=== PATIENT | female | born 1975 | race Caucasian/White ===

== ENCOUNTER 2019-08-24 14:27 | Inpatient (IN) | payer OTHER ==
[~2019-08-24] VITALS: Ht 160 cm; Wt 49.7 kg
[~2019-08-24 14:27] MED LIST: CARAL PO; CEFD300C3 PO; LEVO125T95 PO; LEVOTHYROXINE PO; LIB25 PO; MVIT PO; PANT40TA PO
[2019-08-24 15:04] LABS: BASOPHILS % (AUTO) 0.8 % (0.0-5.0); EOSINOPHILS % (AUTO) 0.8 % (0.0-8.0); HEMATOCRIT 41.3 % (36-48); LYMPHOCYTES % (AUTO) 11.7 % (21.0-51.0); MEAN CORPUSCULAR HEMOGLOBIN 35.4 pg (27.0-33.0); MEAN CORPUSCULAR HGB CONC 33.7 g/dL (32.0-36.0); MEAN CORPUSCULAR VOLUME 105.1 fL (79-99); MONOCYTES % (AUTO) 6.1 % (3.0-13.0); NEUTROPHILS % (AUTO) 80.6 % (40.0-77.0); NUCLEATED RED BLOOD CELLS 0.1 % (0.0-0.19); PLATELET COUNT (AUTO) 386 K/uL (130-400); RED BLOOD CELL COUNT(AUTO) 3.93 MIL/uL (4.00-5.50); RED CELL DISTRIBUTION WIDTH 16.7 % (11.0-15.5); WHITE BLOOD COUNT (AUTO) 16.2 K/uL (4.8-10.8)
[2019-08-24 15:17] LABS: INR 1.02 (0.85-1.15); PARTIAL THROMBOPLASTIN TIME 31.6 SEC (26.3-35.5); PROTHROMBIN TIME 10.7 SEC (9.6-11.6)
[2019-08-24 15:19] LABS: ALBUMIN 1.6 g/dL (3.5-5.0); BILIRUBIN,TOTAL 1.1 mg/dL (0.2-1.0); CREATININE 2.7 mg/dL (0.5-1.5); TOTAL PROTEIN, SERUM 6.2 g/dL (6.0-8.3)
[2019-08-24] MEDS ORDERED: ONDANSETRON HCL 4 MG/2 ML VIAL ONE (15:19)
[2019-08-24] MEDS ORDERED: MORPHINE SULFATE 2 MG/ML 1ML SYG ONE (15:20)
[2019-08-24] MEDS ORDERED: ZOSYN 3.375GM+NS 50ML 50 ML IV ONE (15:40)
[2019-08-24] MEDS ORDERED: DEXTROSE 5 % AND 0.9 % NACL 1,000 ML IV SCH (16:30)
[2019-08-24] MEDS ORDERED: ONDANSETRON HCL 4 MG/2 ML VIAL IV PRN (16:30)
[2019-08-24 18:40] VITALS: BP 93/57
[2019-08-24 19:15] VITALS: BP 97/61
[2019-08-24] MEDS ORDERED: PHARMACY COMMUNICATION MISC SCH ×2 (19:30→21:30)
[2019-08-24] MEDS ORDERED: ACET1TAB12 PO (20:12)
[2019-08-24] MEDS: ZOSYN 3.375GM+NS 50ML 50 ML IV SCH (20:56)
[2019-08-24] MEDS ORDERED: KETOROLAC TROMETHAMINE 15MG/ML IM PRN (21:00)
[2019-08-24] MEDS: ACETAMINOPHEN-CODEINE 300/30MG TAB PO PRN (21:27)
[2019-08-24] MEDS: SODIUM CHLORIDE 0.9% 1000ML 1,000 ML IV SCH (23:04)
[2019-08-25] VITALS (8 sets, daily range): BP systolic 80–89; BP diastolic 43–55
[2019-08-25] MEDS: KETOROLAC TROMETHAMINE 15MG/ML IV PRN ×3 (02:18→15:18)
--- NOTE | 2019-08-25 04:21 | NUR ---
Notified Cami Muhammad BENCH INSPECTOR regarding patient been having low blood pressure of 88/49 also informed her that patient stated that she has been running low BP ever since post cholecystectomy 08/05. She ordered NS bolus of 500cc, which then i informed her that her creatine is elevated which is 2.7 and she said to give it still.
[2019-08-25] MEDS ORDERED: SODIUM CHLORIDE 0.9% 1000ML 500 ML IV ONE (04:30)
--- NOTE | 2019-08-25 04:30 | NUR ---
Bolus IV NS 500 cc was given. Patient tolerated well. No signs of discomfort
[2019-08-25] MEDS: SODIUM CHLORIDE 0.9% 1000ML 1,000 ML IV SCH ×2 (04:32→10:20)
[2019-08-25 05:22] LABS: BASOPHILS % (AUTO) 1.2 % (0.0-5.0); EOSINOPHILS % (AUTO) 1.8 % (0.0-8.0); HEMATOCRIT 33.5 % (36-48); LYMPHOCYTES % (AUTO) 14.8 % (21.0-51.0); MEAN CORPUSCULAR HEMOGLOBIN 35.7 pg (27.0-33.0); MEAN CORPUSCULAR HGB CONC 34.3 g/dL (32.0-36.0); MEAN CORPUSCULAR VOLUME 104.2 fL (79-99); MONOCYTES % (AUTO) 8.7 % (3.0-13.0); NEUTROPHILS % (AUTO) 73.5 % (40.0-77.0); PLATELET COUNT (AUTO) 246 K/uL (130-400); RED BLOOD CELL COUNT(AUTO) 3.22 MIL/uL (4.00-5.50); RED CELL DISTRIBUTION WIDTH 16.8 % (11.0-15.5); WHITE BLOOD COUNT (AUTO) 11.4 K/uL (4.8-10.8)
[2019-08-25 05:40] LABS: ALBUMIN 1.4 g/dL (3.5-5.0); BILIRUBIN,TOTAL 1.1 mg/dL (0.2-1.0); CREATININE 2.8 mg/dL (0.5-1.5); POTASSIUM 4.9 mmol/L (3.5-5.1); TOTAL PROTEIN, SERUM 4.7 g/dL (6.0-8.3)
[2019-08-25] MEDS ORDERED: ALBUMIN (HUMAN) 25% 100 ML IV SCH (08:45)
[2019-08-25] MEDS: FAMOTIDINE/PF 20 MG/2 ML VIAL IV SCH ×2 (09:33→21:24)
[2019-08-25] MEDS: ZOSYN 3.375GM+NS 50ML 50 ML IV SCH ×2 (09:33→21:25)
[2019-08-25] MEDS: ENOXAPARIN SODIUM 30 MG/0.3 ML SQ SCH (09:34)
--- NOTE | 2019-08-25 14:37 | NUR ---
DCP CM met with pt discussed dc plans. Pt is independent prior to admission, lives at home w/boyfriend Denies any equipments/services. Feels safe to go back home, still drives, boyfriend able to assist with transportation and needs as necessary. DC plan to home once stable. CM to cont to follow up. Addendum: 08/25/19 at 1439 by DEBBIE TINAJERO LVN CM Amended: Links added.
--- NOTE | 2019-08-25 16:31 | NUR ---
RD NOTIFICATION DIET: GI SOFT/BLAND, 1 LITER FLUID RESTRICTION. PO INTAKE 100% AND HAS STEADY APPETITE PER PT. LBM: 08/21 NOTED. PT UNABLE TO PASS BM POSSIBLY DUE TO POOR PO INTAKE FOR SEVERAL DAYS NOW. PT STATED SHE IS CURRENTLY HAVING ABDOMINAL PAIN. SHE SAYS SHE LIKES TO DRINK ENSURE AND REQUESTED TO HAVE ONE WITH MEALS. RD NOTIFIED PT SHE IS ON A FLUID RESTRICTION HOWEVER PT STATED SHE WOULD RATHER HAVE ENSURE THAN TEA, ETC. RD RECOMMENDS CONTINUE CURRENT DIET, OFFER ENSURE BID RECOMMEND VITAMIN B12 AND/OR FOLIC ACID SUPPLEMENT DUE TO ELEVATED [facility] AND [facility] MONITOR LABS AND BM RD WILL CONTINUE TO MONITOR AND FOLLOW UP NEEDED, THANK YOU. Addendum: 08/25/19 at [address] Amended: Links added.
[2019-08-25 18:07] LABS: APPEARANCE,URINE Clear (CLEAR); BILIRUBIN,URINE Negative (NEGATIVE); COLOR,URINE Yellow (YELLOW); GLUCOSE, URINE (UA) Negative (NEGATIVE); KETONES,URINE Negative (NEGATIVE); LEUKOCYTE ESTERASE ,URINE Negative (NEGATIVE); NITRATE,URINE Negative (NEGATIVE); OCCULT BLOOD,URINE Negative (NEGATIVE); PH,URINE 5.5 (5.0-8.0); PROTEIN,URINE Negative (NEGATIVE); UROBILINOGEN,URINE 0.2 mg/dL (0.2-1.0)
[2019-08-25 18:09] LABS: SODIUM,URINE RANDOM < 15 mmol/l (40-220)
[2019-08-25] MEDS ORDERED: PHARMACY COMMUNICATION MISC SCH (20:00)
[2019-08-25] MEDS: OCTREOTIDE ACETATE 100 MCG/ML AMP SQ SCH (21:25)
[2019-08-25] MEDS: MIDODRINE HCL 5 MG TABLET PO SCH (21:25)
[2019-08-25] MEDS: ACETAMINOPHEN-CODEINE 300/30MG TAB PO PRN (21:26)
--- NOTE | 2019-08-25 21:34 | NUR ---
CALLED THE PHARMACY, SPOKE WITH [place]N, CONFIRMED THAT THEY RECEIVED THE ALBUMIN FORM THAT I SENT THRU FAX, FOLLOWING UP WITH ALBUMIN SCHEDULED. HE SAID IT WILL SEND IN A WHILE. PENDING
[2019-08-25 22:11] LABS: TOTAL BILIRUBIN, BODY FLUID 0.6 mg/dL
[2019-08-25] MEDS: ALBUMIN (HUMAN) 25% 100 ML IV SCH (22:27)
[2019-08-26 03:03] VITALS: BP 82/56
[2019-08-26 05:13] LABS: BASOPHILS % (AUTO) 2.1 % (0.0-5.0); EOSINOPHILS % (AUTO) 4.5 % (0.0-8.0); HEMATOCRIT 29.9 % (36-48); LYMPHOCYTES % (AUTO) 13.5 % (21.0-51.0); MEAN CORPUSCULAR HEMOGLOBIN 36.2 pg (27.0-33.0); MEAN CORPUSCULAR HGB CONC 33.9 g/dL (32.0-36.0); MEAN CORPUSCULAR VOLUME 106.7 fL (79-99); MONOCYTES % (AUTO) 6.2 % (3.0-13.0); NEUTROPHILS % (AUTO) 73.7 % (40.0-77.0); PLATELET COUNT (AUTO) 141 K/uL (130-400); RED CELL DISTRIBUTION WIDTH 16.5 % (11.0-15.5); WHITE BLOOD COUNT (AUTO) 5.5 K/uL (4.8-10.8)
[2019-08-26 06:05] LABS: ALBUMIN 2.8 g/dL (3.5-5.0); BILIRUBIN,TOTAL 1.3 mg/dL (0.2-1.0); MAGNESIUM 1.9 mg/dL (1.80-2.40); PHOSPHORUS 3.1 mg/dL (2.5-4.9); POTASSIUM 4.3 mmol/L (3.5-5.1); THYROID STIMULATING HORMONE 21.08 uIU/mL (0.36-3.74); TOTAL PROTEIN, SERUM 5.1 g/dL (6.0-8.3); URIC ACID 6.3 mg/dL (2.6-7.2)
[2019-08-26] MEDS: ACETAMINOPHEN-CODEINE 300/30MG TAB PO PRN ×3 (06:37→19:43)
[2019-08-26] MEDS: ALBUMIN (HUMAN) 25% 100 ML IV SCH ×3 (06:37→20:05)
[2019-08-26 08:00] VITALS: BP 93/65
[2019-08-26] MEDS: ZOSYN 3.375GM+NS 50ML 50 ML IV SCH ×2 (10:00→21:34)
[2019-08-26] MEDS: MIDODRINE HCL 5 MG TABLET PO SCH ×3 (10:01→20:18)
[2019-08-26] MEDS: THIAMINE HCL 100 MG/ML 2ML VIAL IVP SCH (10:01)
[2019-08-26] MEDS: VITAMIN B COMPLEX 1 CAPSULE PO SCH (10:01)
[2019-08-26] MEDS: FOLIC ACID/VITAMIN B COMP W-C 1 MG CAP/TAB PO SCH (10:01)
[2019-08-26] MEDS: OCTREOTIDE ACETATE 100 MCG/ML AMP SQ SCH ×3 (10:02→20:18)
[2019-08-26] MEDS: ENOXAPARIN SODIUM 30 MG/0.3 ML SQ SCH (10:03)
[2019-08-26 12:00] VITALS: BP 94/63
--- NOTE | 2019-08-26 13:30 | NUR ---
DR THAKKAR ROUNDED ON PATIENT RECEIVED ORDERS FOR AM LAB CBC AND BMP ORDERS PLACED
--- NOTE | 2019-08-26 14:15 | NUR ---
DR MEJIA ROUNDED ON PATIENT AND KALI DRAINED AND SITE DRESSED
--- NOTE | 2019-08-26 14:18 | NUR ---
KALI DRAIN REMOVED AND SITE DRESSED FOLLOW UP OUTPATIENT WITH DR SWIFT IN 2 WEEKS . RX WRITTEN FOR ZOFRAN AND TRAMADOL PRN , PLACED IN CHART.
[2019-08-26 15:50] VITALS: BP 94/61
[2019-08-26 19:40] VITALS: BP 83/45
[2019-08-26 23:05] VITALS: BP 92/51
[2019-08-27 03:46] VITALS: BP 81/51
[2019-08-27 04:55] LABS: HEMATOCRIT 28.9 % (36-48); MEAN CORPUSCULAR HEMOGLOBIN 36.6 pg (27.0-33.0); MEAN CORPUSCULAR HGB CONC 34.5 g/dL (32.0-36.0); PLATELET COUNT (AUTO) 138 K/uL (130-400); RED BLOOD CELL COUNT(AUTO) 2.72 MIL/uL (4.00-5.50); RED CELL DISTRIBUTION WIDTH 16.8 % (11.0-15.5); WHITE BLOOD COUNT (AUTO) 4.5 K/uL (4.8-10.8)
[2019-08-27] MEDS: ALBUMIN (HUMAN) 25% 100 ML IV SCH (05:03)
[2019-08-27] MEDS: ACETAMINOPHEN-CODEINE 300/30MG TAB PO PRN ×2 (05:05→09:56)
[2019-08-27 05:11] LABS: ALBUMIN 3.3 g/dL (3.5-5.0); BILIRUBIN,TOTAL 1.3 mg/dL (0.2-1.0); CREATININE 1.5 mg/dL (0.5-1.5); POTASSIUM 5.1 mmol/L (3.5-5.1); TOTAL PROTEIN, SERUM 5.3 g/dL (6.0-8.3)
[2019-08-27 05:24] LABS: BAND NEUTROPHILS % (MANUAL) 1 % (0-2); BASOPHILS % (MANUAL) 2 % (0-2); LYMPHOCYTES % (MANUAL) 31 % (22-44); MAN.DIFF COMMENT-IMPRESSION MANUAL DIFFERENTIAL; MONOCYTES % (MANUAL) 2 % (2-9); SEGMENTED NEUTROPHILS % 64 % (40-70)
[2019-08-27] MEDS ORDERED: LEVOTHYROXINE 125 MCG TABLET PO SCH (06:30)
[2019-08-27 08:00] VITALS: BP 85/56
[2019-08-27] MEDS ORDERED: ALBUMIN (HUMAN) 25% 100 ML IV SCH (09:00)
[2019-08-27] MEDS ORDERED: SPIRONOLACTONE 25 MG TAB PO SCH (09:00)
[2019-08-27] MEDS ORDERED: FUROSEMIDE 20 MG TABLET PO SCH (09:00)
[2019-08-27] MEDS: ZOSYN 3.375GM+NS 50ML 50 ML IV SCH (09:33)
[2019-08-27] MEDS: FAMOTIDINE/PF 20 MG/2 ML VIAL IV SCH (09:33)
[2019-08-27] MEDS: THIAMINE HCL 100 MG/ML 2ML VIAL IVP SCH (09:34)
[2019-08-27] MEDS: MIDODRINE HCL 5 MG TABLET PO SCH (09:34)
[2019-08-27] MEDS: FOLIC ACID/VITAMIN B COMP W-C 1 MG CAP/TAB PO SCH (09:34)
[2019-08-27] MEDS: OCTREOTIDE ACETATE 100 MCG/ML AMP SQ SCH (09:34)
[2019-08-27] MEDS: VITAMIN B COMPLEX 1 CAPSULE PO SCH (09:35)
[2019-08-27] MEDS: ENOXAPARIN SODIUM 30 MG/0.3 ML SQ SCH (09:35)
[2019-08-27 11:27] VITALS: BP 89/62
--- NOTE | 2019-08-27 11:30 | NUR ---
PATIENT REQUESTING TO BE DISCHARGED. PER ROBIN TRANSFUSION NURSE FOLLOW UP WITH DR. THAKKAR FOR DISCHARGE RECOMMENDATIONS. SPOKE WITH DR. THAKKAR REQUESTED DISCHARGE RECOMMENDATIONS STATED HE WILL BE IN TO SEE PATIENT.
[2019-08-27] MEDS ORDERED: FURO20TA6 PO (11:37)
[2019-08-27] MEDS ORDERED: SPIR25TA PO (11:37)
[2019-08-27] MEDS ORDERED: VITA1CAP PO (11:37)
--- NOTE | 2019-08-27 13:50 | NUR ---
AMA PATIENT WALKED TO NURSES STATION STATED SHE WANTED TO BE DISCHARGED, STATED SHE DOES NOT WANT TO WAIT FOR DR. THAKKAR TO ROUND. PATIENT EDUCATED BY BOTH DR. DIAZ AND ROBIN GILL ON IMPORTANCE OF WAITING FOR DR. THAKKAR RECOMMENDATIONS. PATIENT STILL REQUESTING TO BE DISCHARGED. AMA FORMS SIGNED. REMOVED TELE PACK, REMOVED IV. PATIENTS FAMILY AT BEDSIDE EXPLAINED RISKS OF AMA DISCHARGE, PATIENT AND FAMILY VOICED UNDERSTANDING. PATIENT AT THIS TIME PRESENTS IN NO APPARENT DISTRESS. TO BE DRIVEN HOME BY FAMILY FRIEND. ROBIN GILL NOTIFIED OF AMA DISCHARGE
== END 2019-08-27 14:05 | disposition left against medical advice (07) | DRG 919 ==
LOC: EEVIPCON 14:27 → EDH 14:27 → EDHIP 14:28 → 3DH 17:57
PROVIDERS: ADMIT Internal Medicine; ATTEND Internal Medicine
DX: T85.638A Leakage of other specified internal prosthetic devices, implants and grafts, initial encounter (principal); K65.2 Spontaneous bacterial peritonitis; A41.9 Sepsis, unspecified organism; E43 Unspecified severe protein-calorie malnutrition; E87.1 Hypo-osmolality and hyponatremia; N17.9 Acute kidney failure, unspecified; E87.2 Acidosis; Z68.1 Body mass index [BMI] 19.9 or less, adult; E86.0 Dehydration; E87.8 Other disorders of electrolyte and fluid balance, not elsewhere classified; D72.829 Elevated white blood cell count, unspecified; Z90.49 Acquired absence of other specified parts of digestive tract; E88.09 Other disorders of plasma-protein metabolism, not elsewhere classified; R60.1 Generalized edema; N18.9 Chronic kidney disease, unspecified; E11.22 Type 2 diabetes mellitus with diabetic chronic kidney disease; I12.9 Hypertensive chronic kidney disease with stage 1 through stage 4 chronic kidney disease, or unspecified chronic kidney disease; K70.31 Alcoholic cirrhosis of liver with ascites; E03.9 Hypothyroidism, unspecified; Z90.710 Acquired absence of both cervix and uterus; Z91.19 Patient's noncompliance with other medical treatment and regimen; Z88.8 Allergy status to other drugs, medicaments and biological substances; Z53.29 Procedure and treatment not carried out because of patient's decision for other reasons; Y83.8 Other surgical procedures as the cause of abnormal reaction of the patient, or of later complication, without mention of misadventure at the time of the procedure; Y92.89 Other specified places as the place of occurrence of the external cause
CPT/HCPCS: 36415; 78226; 80053; 81003; 82140; 82247; 82533; 82607; 82746; 82948; 83090; 83615; 83690; 83735; 83921; 83930; 83935; 84100; 84300; 84443; 84550; 85025; 85610; 85730; 87070; 87071; 87076; 87077; 87186; 87205; 93005; A9537; G0378; J1650; J1885; J2354; J2405; J2543; J3411; J3490; J7042; P9046